=== PATIENT | male | born 1980 | race Caucasian/White ===

== ENCOUNTER → 2018-08-22 13:39 | Outpatient (CLI) | payer OTHER, SELFPAY ==
--- NOTE | 2018-08-22 | DI.RAD.S_ITS ---
PROCEDURE: [place] SHOULDER INJECTION MR/CT LT INDICATIONS: IMPINGEMENT SYNDROME OF LEFT TECHNIQUE: The indications, alternatives, benefits, risks, and complications of the procedure were explained to the patient. Written informed consent was obtained and placed in the chart. The shoulder was examined fluoroscopically and a site for needle placement chosen for entry into the glenohumeral joint from an anterior approach. The skin was prepped and draped in a sterile fashion, and 1% lidocaine infiltrated from skin down to joint capsule. A spinal needle was inserted into the glenohumeral joint, and a small amount of iodinated contrast media injected to confirm intra-articular placement of the needle tip. This was followed by approximately 12 mL dilute solution of a gadolinium containing MR contrast agent. The needle was removed and a dressing was applied. The patient was given postprocedural instructions and sent to the MR suite for MR imaging. FINDINGS: A single fluoroscopic spot image demonstrates intra-articular location of injected iodinated contrast. IMPRESSION: Successful fluoroscopically guided administration of dilute Gadolinium solution into the shoulder joint for MR arthrogram. Dictated by: Jeanmarie Huang M.D. on 08/22/2018 at 14:32 Approved by: Jeanmarie Huang M.D. on 08/22/2018 at 14:33
--- NOTE | 2018-08-22 | DI.MRI.S_ITS ---
PROCEDURE: MR SHOULDER LT W CON INDICATIONS: IMPINGEMENT SYNDROME OF LEFT TECHNIQUE: After the administration of 12 mL of dilute intra-articular Gadolinium contrast, oblique coronal T1 and T2 spin echo with fat saturation, oblique sagittal T1 spin echo with and without fat saturation, oblique sagittal T2 fast spin echo with fat saturation, axial T1 spin echo with fat saturation through the shoulder. COMPARISON: [facility], , [place] SHOULDER INJECTION MR/CT LT, 08/22/2018, 13:59. FINDINGS: Image quality: Excellent. Rotator cuff: There is high-grade partial-thickness tear versus full-thickness tear of the distal supraspinatus tendon near its humeral attachment. There is no contrast extravasation into the subacromial/subdeltoid bursa. The infraspinatus, and subscapularis tendons appear intact throughout. No rotator cuff muscle atrophy on sagittal images. Bones and bursae: There is a 1.4 x 3.5 cm intramedullary mass within the humeral head and neck demonstrating isointense T1 and hyperintense T2 signal with foci of hypointensity consistent with chondroid matrix. The bone marrow contusions or fractures. Moderate acromioclavicular joint degeneration. The acromion demonstrates conventional anatomy, without an os acromiale. Capsule and soft tissues: There is a small tear of the superior labrum extending to the biceps anchor. The glenohumeral ligaments appear intact. The long head of the biceps tendon demonstrates normal location and morphology. The rotator interval appears irregular with the appearance of fibrosis. The coracohumeral ligament is of normal thickness. No intra-articular bodies. IMPRESSION: 1. There is a superior labral tear involving the biceps anchor. 2. High-grade partial-thickness tear versus full-thickness tear of the distal supraspinatus tendon. 3. Irregular rotator interval with the appearance of fibrosis. This finding is associated with adhesive capsulitis. Recommend clinical correlation. 4. 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 5. Moderate acromioclavicular joint degeneration. Dictated by: Jeanmarie Huang M.D. on 08/22/2018 at 14:45 Approved by: Jeanmarie Huang M.D. on 08/22/2018 at 18:04
== END ==
PROVIDERS: PCP Student in an Organized Health Care Education/Training Program; Visit Provider Student in an Organized Health Care Education/Training Program
DX: M75.42 Impingement syndrome of left shoulder (principal); S43.432A Superior glenoid labrum lesion of left shoulder, initial encounter; M75.112 Incomplete rotator cuff tear or rupture of left shoulder, not specified as traumatic; M19.012 Primary osteoarthritis, left shoulder; M75.02 Adhesive capsulitis of left shoulder; M89.9 Disorder of bone, unspecified
CPT/HCPCS: 23350; 73222; 77002